=== PATIENT | female | born 1970 | race African-American/Black ===

== ENCOUNTER 2017-12-12 23:56 | Emergency (ER) | payer SELFPAY ==
[~2017-12-12] VITALS: Ht 154.9 cm; Wt 56.7 kg
[~2017-12-12 23:56] MED LIST: IBUPROFEN600 MG ORAL; ZOFRAN ODT4 MG ORAL
[2017-12-13 00:11] VITALS: BP 146/96
[2017-12-13] MEDS ORDERED: Norco 5mg/325mg tab ORAL ONE (01:45)
[2017-12-13] MEDS ORDERED: Naproxen 500mg tab ORAL ONE (01:45)
[2017-12-13] MEDS ORDERED: ZIAC1 EA ORAL ×2 (01:48→13:26)
--- NOTE | 2017-12-13 01:49 | Emergency Room Report ---
History of Present Illness General Chief Complaint: Headache Source: Patient Present Illness HPI This patient is here b/c she is in between physicians and she has HTN. She also c/o gradaul onset mild-mod frontal throbbing headache. No fever, no trauma, no neck pain, no confusion, no cp, no sob. No travel. Allergies: Coded Allergies: No Known Allergies (Unverified , 04/11/13) Patient History Last Menstrual Period: 12/2017 Now: No : 3 Para: 3 Nursing Documentation-PMH Hx Hypertension: Yes Hx Gastrointestinal Problems: No - Anemia Review of Systems Constitutional: Reports: no symptoms Eye: Reports: no symptoms ENT: Reports: no symptoms Respiratory: Reports: no symptoms Cardiovascular: Reports: no symptoms Gastrointestinal: Reports: no symptoms Genitourinary: Reports: no symptoms Musculoskeletal: Reports: no symptoms Skin: Reports: no symptoms Psychiatric: Reports: no symptoms Neurological: Reports: no symptoms Endocrine: Reports: no symptoms Hematologic/Lymphatic: Reports: no symptoms Allergic: Reports: no symptoms All Other Systems: negative except mentioned in HPI Physical Exam Vital Signs Date Time Temp Pulse Resp B/P (MAP) Pulse Ox O2 Delivery O2 Flow Rate FiO2 12/13/17 00:05 98.6 93 15 143/96 98 Room Air 98.6 Sp02 EP Interpretation: reviewed, normal General Appearance: normal inspection, well appearing, no apparent distress, alert, GCS 15, non-toxic Head: normocephalic, atraumatic Eyes: bilateral eye normal inspection, bilateral eye PERRL, bilateral eye EOMI ENT: normal ENT inspection, hearing grossly normal, normal pharynx, no angioedema, normal voice, moist mucus membranes Neck: normal inspection, full range of motion, supple, no meningismus, no bony tend Respiratory: normal inspection, lungs clear, normal breath sounds, no rhonchi, no respiratory distress, no retraction, no accessory muscle use, no wheezing Cardiovascular #1: normal inspection, regular rate, rhythm, no edema Gastrointestinal: normal inspection, normal bowel sounds, non tender, soft, no mass, non-distended Musculoskeletal: gait/station normal, normal range of motion Neurologic: normal inspection, alert, oriented x3, responsive, motor strength/ tone normal Psychiatric: normal inspection, judgement/insight normal, memory normal Suicide Risk Assessment: Suicidal Ideation: No Had intent to initiate attempt: No Pt's plan for suicide attempt: No Has means to complete attempt: No Skin: normal inspection, normal color, no rash, warm/dry Medical Decision Making Diagnostic Impression: Primary Impression: Headache Additional Impression: Hypertension ER Course 154/101 advised will start meds and give one month but no refill must be PMD Return if new or worse symptoms. See your own doctor in 2 days. Take medication as prescribed. Emergency departments do not prescribe medications for chronic conditions. Emergency departments do not prescribe narcotics for chronic conditions. You need to see a primary physician. Look on your Medical card for the doctor/ clinic name and/or phone number to find one. Here are some other options: [facility], [facility], [facility], [facility]. Your blood pressure was elevated >120/80 but appears stable without evidence of hypertensive emergency or urgency. You have been informed that untreated high blood pressure will cause serious medical problems. You must manage this as an outpatient with your primary doctor or a doctor listed in the community resources book. Look on your Medical card for the doctor/clinic name and/or phone number to find one. Here are some other options: [facility] , [facility], [facility], [facility], [facility]. We are also giving you a Community Resources book. Last Vital Signs Date Time Temp Pulse Resp B/P (MAP) Pulse Ox O2 Delivery O2 Flow Rate FiO2 12/13/17 00:11 98.2 86 22 146/96 100 Room Air 98.2 Disposition: HOME, SELF-CARE Condition: Stable Scripts Hctz/Bisoprolol (Ziac 5-6.25 mg Tablet) 1 Each Tablet 1 EA ORAL DAILY, #30 TAB Prov: Delonte Dillon M.D. 12/13/17 Patient Instructions: Tension Headache Delonte Dillon M.D. Dec 13, 2017 01:49
[2017-12-13 02:05] VITALS: BP 135/92
== END 2017-12-13 02:27 | disposition home or self-care (01) ==
LOC: EMR 12-13 01:20
DX: R51 Headache (principal); I10 Essential (primary) hypertension
CPT/HCPCS: 99282

== ENCOUNTER → 2020-05-10 | Day surgery (SDC) | payer BC ==
[~2020-05-10] VITALS: Ht 152.4 cm; Wt 62.6 kg
[2020-05-10] VITALS (14 sets, daily range): BP systolic 84–138; BP diastolic 50–88
[~2020-05-10] MED LIST changes: +ATENOLOL100 MG ORAL; +Acetaminophen (Non formulary) 100 ML IV ONE; +Atropine Sulfate 0.4mg/ml inj IVP PRN; +D5 1/2NS 1,000 ML IV SCH; +DiphenhydrAMINE 50mg/ml Inj IVP PRN; +HYDROcodone/Acetamin 5/325 tab ORAL PRN; +HYDROcodone/Acetamin 7.5/325 tab ORAL PRN; +HYDROmorphone 1mg/ml Carpuject SUBQ PRN; +HYZAAR 100-12.1 EACH ORAL; +Hydromorphone 0.5mg/0.5ml inj IVP PRN; +Ketorolac 30mg Inj IV PRN; +LORazepam Inj 2mg/ml 1ml IV PRN; +LR 1000ml 1,000 ML IVLG SCH; +LR 1000ml ONE; +Labetalol 5mg/ml 20ml vial IV PRN; +Lidocaine 1% MPF 10mg/ml 5ml ONE; +Lidocaine 1% Plain 30 ml INJ ONE; +Meperidine 25mg/1ml Inj (FOR RIGORS ONLY) IV PRN; +Metoclopramide 10mg/2ml Inj IVP PRN; +Midazolam 2mg/2ml Inj IVP PRN; +NS Irrig 1000ml ONE; +Sodium Chloride 10ml vial INJ ONE; +Sterile Water Irrig 1000ml IRRIG ONE; +Tylenol #3 tab (300mg/30mg) ORAL PRN; +ZIAC1 EA ORAL; +ceFAZolin sod 1 GM in NS 55 ML IVPB ONE; +fentaNYL 100 mcg/2 mL IV ONE; +fentaNYL 100 mcg/2 mL IV PRN; +oxyCODONE HCL/Acetaminophen 5/325mg ORAL PRN
--- NOTE | 2020-05-10 07:40 | Anethesia Preoperative Eval ---
Anesthesia Pre-op PMH/ROS General Date of Evaluation: May 10, 2020 Time of Evaluation: 07:31 Anesthesiologist: Quinton ASA Score: ASA 2 Mallampati Score Class I : Soft palate, uvula, fauces, pillars visible Class II: Soft palate, uvula, fauces visible Class III: Soft palate, base of uvula visible Class IV: Only hard plate visible Mallampati Classification: Class I Surgeon: Pricilla Diagnosis: Abd Pain Surgical Procedure: Hysteroscopy, D&C Anesthesia History: none Family History: no anesthesia problems Allergies: Coded Allergies: GLUTEN (Verified Allergy, Severe, 05/10/20) diarrhea, headaches Medications: see eMAR Patient NPO?: Yes Past Medical History Cardiovascular: Reports: HTN PSxH Narrative: Repair Uterine Rupture Anesthesia Pre-op Phys. Exam Physician Exam Last Vital Signs Date Time Temp Pulse Resp B/P (MAP) Pulse Ox O2 Delivery O2 Flow Rate FiO2 05/10/20 06:18 97.0 73 18 138/86 98 Room Air Constitutional: NAD Neurologic: CN 2-12 intact Cardiovascular: RRR Respiratory: CTA Gastrointestinal: S/NT/ND Airway Exam Mallampati Score: Class I MO: full ROM: full Teeth: missing, intact Anesthesia Pre-op A/P Labs Urine Test Test 05/10/20 05:55 Urine HCG, Qualitative Negative (NEGATIVE) Risk Assessment & Plan Assessment: ASA 2 Plan: GA, SED, GlideScope Status Change Before Surgery: No Pre-Antibiotics Dru Gram Ancef IV Given Within 1 Hr of Incision: Yes Time Given: 08:01 Geoff Alcantara MD May 10, 2020 07:40
--- NOTE | 2020-05-10 07:54 | Pre-Procedure Note/Attestation ---
Pre-Procedure Note/Attestation Complete Prior to Procedure Planned Procedure: not applicable Procedure Narrative: D&C and Hysteroscopy Possible polypectomy Possible use of resectoscope Indications for Procedure Pre-Operative Diagnosis: Abnormal uterine bleeding Endometrial and uterine mass Attestation I attest that I discussed the nature of the procedure; its benefits; risks and complications; and alternatives (and the risks and benefits of such alternatives), prior to the procedure, with the patient (or the patient's legal motor vehicle representative). I attest that, if there was a reasonable possibility of needing a blood transfusion, the patient (or the patient's legal motor vehicle representative) was given the [facility] standardized written summary, pursuant to the Sai Loki Blood Safety Act ([place] Health and Safety Code # 1645, as amended). I attest that I re-evaluated the patient just prior to the surgery and that there has been no change in the patient's H&P, except as documented below: Olayinka Pleitez MD May 10, 2020 07:54
--- NOTE | 2020-05-10 08:10 | 48 Hour Post Anesthesia Eval ---
Post Anesthesia Evaluation Procedure: Hysteoscopy, D&C Date of Evaluation: May 10, 2020 Time of Evaluation: 11:23 Blood Pressure Systolic: 107 0: 64 Pulse Rate: 63 Respiratory Rate: 18 Temperature (Fahrenheit): 97.6 O2 Sat by Pulse Oximetry: 100 Airway: patent Nausea: No Vomiting: No Pain Intensity: 2 Hydration Status: adequate Cardiopulmonary Status: Stable Mental Status/LOC: patient returned to baseline Follow-up Care/Observations: 0 Post-Anesthesia Complications: 0 Follow-up care needed: ready to discharge Geoff Alcantara MD May 10, 2020 08:10
--- NOTE | 2020-05-10 08:10 | Immediate Post-Op Evaluation ---
Immediate Post-Op Evalulation Immediate Post-Op Evalulation Procedure: Hysteoscopy, D&C Date of Evaluation: May 10, 2020 Time of Evaluation: 09:10 IV Fluids: 900 LR Blood Products: 0 Estimated Blood Loss: 25 Urinary Output: 0 Blood Pressure Systolic: 87 Blood Pressure Diastolic: 51 Pulse Rate: 69 Respiratory Rate: 18 O2 Sat by Pulse Oximetry: 100 Temperature (Fahrenheit): 97.1 Pain Score (1-10): 2 Nausea: No Vomiting: No Complications 0 Patient Status: awake, reacts, patent, none Hydration Status: adequate Dru Gram Ancef IV Given Within 1 Hr of Incision: Yes Time Given: 08:01 Geoff Alcantara MD May 10, 2020 08:10
--- NOTE | 2020-05-10 08:49 | Brief Operative Note ---
Immediate Post Operative Note Operative Note Pre-op Diagnosis: Abnormal uterine bleeding Endometrial and uterine mass Post-op Diagnosis: Likely Adenomyosis Post-op Diagnosis: same as pre-op plus Findings: consistent w/pre-op dx studies Surgeon: Olayinka Pleitez MD Anesthesiologist: MD Quinton Anesthesia: general Specimen: yes - ECC, EMC Complications: none Condition: stable Fluids: LR @125 ml/hr Estimated Blood Loss: minimal Drains: none Implant(s) used?: No Olayinka Pleitez MD May 10, 2020 08:49
[2020-05-10] MEDS: Ketorolac 30mg Inj IV PRN ×2 (09:12→10:16)
--- NOTE | 2020-05-10 16:29 | Operative Note - Dictated ---
DATE OF OPERATION: 05/10/2020 PREOPERATIVE DIAGNOSES: Abnormal uterine bleeding, endometrial mass, enlarged uterus. POSTOPERATIVE DIAGNOSES: Abnormal uterine bleeding, endometrial mass, enlarged uterus, likely adenomyosis. PROCEDURE PERFORMED: Hysteroscopy with dilatation and curettage. SURGEON: Olayinka Pleitez M.D. ANESTHESIA: General ANESTHESIOLOGIST: Geoff Alcantara MD. PROCEDURE IN DETAIL: After all the appropriate consents were signed, the patient was brought to the operating room, placed on table in supine position. General anesthesia was induced without complication. The patient was then placed in a dorsal lithotomy position. The patient was prepped and draped in the usual fashion for the procedure. The procedure began with identifying the cervix, grasping the cervix and dilating the patient to 8 mm Hegar. The procedure then continued with sounding of the uterus. The uterine cavity appeared to be enlarged approximately 9 to 10 cm in depth. The procedure then continued with video hysteroscope. The hysteroscopy revealed a large cavity. Both ostia were visualized fully. There did not appear to be any polypoid or any other in-vitro growths. The endometrium did have a dotted appearance which likely represents adenomyosis. was most visible in the fundal area. At this time, biopsies were performed in the form of endocervical curettage followed by endometrial curettage. Specimens were submitted separately to pathology for evaluation. The procedure then continued with video hysteroscopy once again which revealed the areas that were adequately biopsied. At this time, uterus was resounded and still sounded to approximately 9 to 10 centimeters. The procedure continued with removing of the manipulator and the patient was then placed back in the supine position when complete hemostasis was noted. The patient was awakened from general anesthesia, brought to the recovery room in excellent condition. Olayinka Pleitez M.D. DR: Yelena JOB#: [id number] CC:
== END | disposition home or self-care (01) ==
LOC: SUR 05:47
DX: N93.9 Abnormal uterine and vaginal bleeding, unspecified (principal); N85.00 Endometrial hyperplasia, unspecified; N85.2 Hypertrophy of uterus; I10 Essential (primary) hypertension; Z91.018 Allergy to other foods
CPT/HCPCS: 58558; 81025; 94003; J0131; J0690; J1100; J1885; J2001; J2250; J2405; J2704; J3010; J7120; 94150